=== PATIENT | male | born 1985 | race Caucasian/White ===

== ENCOUNTER 2021-11-27 19:52 | Emergency (ER) | payer OTHER ==
[2021-11-27] MEDS ORDERED: ONDANSETRON 4 MG/2 ML (SDV) Z0FRAN IVP STA (20:22)
[2021-11-27] MEDS ORDERED: KETOROLAC 30 MG/ML VIAL IVP STA (20:22)
[2021-11-27] MEDS ORDERED: PANTOPRAZOLE 40 MG (PROTONIX) VIAL IV STA (20:22)
[2021-11-27] MEDS ORDERED: NS IV 1000 ML 1,000 ML IV STA (20:22)
[2021-11-27 20:30] LABS: BASOPHILS % (AUTO) 1 % (0-10); EOSINOPHILS # (AUTO) 0.1 10^3/uL (0.0-0.3); EOSINOPHILS % (AUTO) 1 % (0-10); HEMATOCRIT 44 % (40-54); HEMOGLOBIN 15.4 g/dL (13.3-17.7); LYMPHOCYTES % (AUTO) 12 % (12-44); MEAN CORPUSCULAR HEMOGLOBIN 30 pg (25-34); MEAN CORPUSCULAR HGB CONC 35 g/dL (32-36); MEAN CORPUSCULAR VOLUME 84 fL (80-99); MEAN PLATELET VOLUME 10.4 fL (9.0-12.2); MONOCYTES # (AUTO) 0.7 10^3/uL (0.0-1.0); MONOCYTES % (AUTO) 9 % (0-12); NEUTROPHILS # (AUTO) 6.4 10^3/uL (1.8-7.8); NEUTROPHILS % (AUTO) 77 % (42-75); PLATELET COUNT 306 10^3/uL (130-400); WHITE BLOOD COUNT 8.4 10^3/uL (4.3-11.0)
[2021-11-27 20:33] LABS: BILIRUBIN,URINE NEGATIVE (NEGATIVE); CLARITY,URINE CLEAR; GLUCOSE, URINE (UA) NEGATIVE (NEGATIVE); KETONES,URINE NEGATIVE (NEGATIVE); NITRITE,URINE NEGATIVE (NEGATIVE); PROTEIN,URINE NEGATIVE (NEGATIVE)
[2021-11-27 20:37] LABS: WBC,URINE 0-2 /HPF
[2021-11-27 20:44] LABS: AMPHETAMINE SCREEN, URINE NEGATIVE (NEGATIVE); BARBITURATE SCREEN URINE NEGATIVE (NEGATIVE); BENZODIAZEPINES SCREEN URINE NEGATIVE (NEGATIVE); CANNABINOID SCREEN, URINE NEGATIVE (NEGATIVE); COCAINE SCREEN URINE NEGATIVE (NEGATIVE); METHADONE STAT NEGATIVE (NEGATIVE); METHAMPHETAMINE SCREEN URINE S NEGATIVE (NEGATIVE); OPIATE SCREEN URINE NEGATIVE (NEGATIVE); OXYCODONE STAT NEGATIVE (NEGATIVE); PROPOXYPHENE STAT NEGATIVE (NEGATIVE); TRICYCLIC ANTIDEPRESSANTS SCRE NEGATIVE (NEGATIVE)
[2021-11-27 20:47] LABS: CARBON DIOXIDE 21 MMOL/L (21-32); CHLORIDE 104 MMOL/L (98-107); POTASSIUM 3.5 MMOL/L (3.6-5.0); SODIUM 136 MMOL/L (135-145)
[2021-11-27 20:48] LABS: ALANINE AMINOTRANSFERASE 49 U/L (0-55); ALBUMIN 4.6 GM/DL (3.2-4.5); ALKALINE PHOSPHATASE 80 U/L (40-136); BILIRUBIN,TOTAL 0.8 MG/DL (0.1-1.0); BUN/CREATININE RATIO 15; CREATININE SERUM 0.97 MG/DL (0.60-1.30); GFR ESTIMATED 104; GLUCOSE 105 MG/DL (70-105); LIPASE 26 U/L (8-78); TOTAL PROTEIN 7.8 GM/DL (6.4-8.2)
--- NOTE | 2021-11-27 21:47 | ED GI ---
General Chief Complaint: Abdominal/GI Problems Stated Complaint: D/N/V Nursing Triage Note: pt reports n/v/d since friday Source of Information: Patient History of Present Illness Date Seen by Provider: Nov 27, 2021 Time Seen by Provider: 20:24 Initial Comments 36-year-old male presenting with complaints of nausea, vomiting, diarrhea since Friday night. He was having trouble concentrating today and even had cut into his finger while at work. He felt like anytime he tried to eat or drink anything it immediately passed through him. He had abdominal cramping especially right before diarrhea. He had noticed some cramping in his legs and muscles. He denied having fever but felt like he has some chills. He denied any pain with urination. He has not seen blood in his vomit or stool. He had no definite ill contacts. He had not eaten anything different to cause his symptoms. He was feeling a little dizzy or lightheaded earlier. Timing/Duration: 2-3 Days Severity/Quality: Moderate, Cramping Location: Generalized Abdomen Radiation: No Radiation Activities at Onset: None Modifying Factors: Worsens With Eating Associated Symptoms: No Back Pain, No Chest Pain, No Diaphoresis, No Fever/Chills; Fatigue; No Headache, No Heartburn; Nausea/Vomiting; No Rash, No Shortness of Air, No Swelling/Mass in Abdomen, No Syncope Allergies and Home Medications Allergies Coded Allergies: No Known Drug Allergies (Unverified , 11/27/21) Patient Home Medication List Home Medication List Reviewed: Yes Ondansetron (Ondansetron Odt) 4 Mg Tab.rapdis, 4 MG PO Q6H PRN for NAUSEA/VOMITING Prescribed by: WALE GLORIA on 11/27/212 Review of Systems Review of Systems Constitutional: chills, dizziness; No fever EENTM: No Symptoms Reported Respiratory: No Symptoms Reported Cardiovascular: No Symptoms Reported Gastrointestinal: See HPI Genitourinary: Denies Burning, Denies Flank Pain Musculoskeletal: muscle pain, muscle cramps Skin: other ( cut to left hand while at work) Psychiatric/Neurological: No Symptoms Reported Past Vvopyew-Bezstg-Xqivas Hx Patient Social History Tobacco Use?: No Substance use?: No Alcohol Use?: Yes Alcohol Frequency: Once in a while Pt feels they are or have been: No Immunizations Up To Date Influenza Vaccine Up-to-Date: Yes; Up-to-Date Physical Exam Vital Signs Vital Signs - First Documented 11/27/21 20:05 Pulse 118 Resp 18 B/P (MAP) 121/68 (85) Pulse Ox 98 O2 Delivery Room Air Capillary Refill : Height/Weight/BMI Height: '" Weight: lbs. oz. kg; BMI Method: General Appearance: WD/WN, no apparent distress HEENT: PERRL/EOMI, other (slightly dry mucous membranes) Neck: non-tender, full range of motion, supple, normal inspection Respiratory: chest non-tender, lungs clear, normal breath sounds, no respiratory distress, no accessory muscle use Cardiovascular: normal peripheral pulses, tachycardia Gastrointestinal: non tender, soft, no pulsatile mass, abnormal bowel sounds (hyperactive); No guarding, No rebound, No tenderness Rectal: deferred Extremities: normal range of motion, non-tender, normal capillary refill Neurologic/Psychiatric: tower erector helper II-XII nml as tested, alert, oriented x 3 Skin: normal color, warm/dry Progress/Results/Core Measures Results/Orders Lab Results Laboratory Tests Test 11/27/21 20:05 11/27/21 21:45 Range/Units White Blood Count 8.4 4.3-11.0 10^3/uL Red Blood Count 5.21 4.30-5.52 10^6/uL Hemoglobin 15.4 13.3-17.7 g/dL Hematocrit 44 40-54 % Mean Corpuscular Volume 84 80-99 fL Mean Corpuscular Hemoglobin 30 25-34 pg Mean Corpuscular Hemoglobin Concent 35 32-36 g/dL Red Cell Distribution Width 13.0 10.0-14.5 % Platelet Count 306 130-400 10^3/uL Mean Platelet Volume 10.4 9.0-12.2 fL Immature Granulocyte % (Auto) 0 % Neutrophils (%) (Auto) 77 H 42-75 % Lymphocytes (%) (Auto) 12 12-44 % Monocytes (%) (Auto) 9 0-12 % Eosinophils (%) (Auto) 1 0-10 % Basophils (%) (Auto) 1 0-10 % Neutrophils # (Auto) 6.4 1.8-7.8 10^3/uL Lymphocytes # (Auto) 1.0 1.0-4.0 10^3/uL Monocytes # (Auto) 0.7 0.0-1.0 10^3/uL Eosinophils # (Auto) 0.1 0.0-0.3 10^3/uL Basophils # (Auto) 0.0 0.0-0.1 10^3/uL Immature Granulocyte # (Auto) 0.0 0.0-0.1 10^3/uL Sodium Level 136 135-145 MMOL/L Potassium Level 3.5 L 3.6-5.0 MMOL/L Chloride Level 104 98-107 MMOL/L Carbon Dioxide Level 21 21-32 MMOL/L Anion Gap 11 5-14 MMOL/L Blood Urea Nitrogen 15 7-18 MG/DL Creatinine 0.97 0.60-1.30 MG/DL Estimat Glomerular Filtration Rate 104 BUN/Creatinine Ratio 15 Glucose Level 105 70-105 MG/DL Calcium Level 9.0 8.5-10.1 MG/DL Corrected Calcium 8.5-10.1 MG/DL Total Bilirubin 0.8 0.1-1.0 MG/DL Aspartate Amino Transf (AST/SGOT) 26 5-34 U/L Alanine Aminotransferase (ALT/SGPT) 49 0-55 U/L Alkaline Phosphatase 80 40-136 U/L Total Protein 7.8 6.4-8.2 GM/DL Albumin 4.6 H 3.2-4.5 GM/DL Lipase 26 8-78 U/L Urine Color YELLOW Urine Clarity CLEAR Urine pH 5.5 5-9 Urine Specific Aguilar >=1.030 1.016-1.022 Urine Protein NEGATIVE NEGATIVE Urine Glucose (UA) NEGATIVE NEGATIVE Urine Ketones NEGATIVE NEGATIVE Urine Nitrite NEGATIVE NEGATIVE Urine Bilirubin NEGATIVE NEGATIVE Urine Urobilinogen 0.2 < = 1.0 MG/DL Urine Leukocyte Esterase NEGATIVE NEGATIVE Urine RBC (Auto) NEGATIVE NEGATIVE Urine RBC NONE /HPF Urine WBC 0-2 /HPF Urine Squamous Epithelial Cells RARE /HPF Urine Crystals PRESENT H /LPF Urine Amorphous Sediment RARE DAR URATES H /LPF Urine Bacteria TRACE /HPF Urine Casts NONE /LPF Urine Mucus SMALL H /LPF Urine Culture Indicated NO Urine Opiates Screen NEGATIVE NEGATIVE Urine Oxycodone Screen NEGATIVE NEGATIVE Urine Methadone Screen NEGATIVE NEGATIVE Urine Propoxyphene Screen NEGATIVE NEGATIVE Urine Barbiturates Screen NEGATIVE NEGATIVE Ur Tricyclic Antidepressants Screen NEGATIVE NEGATIVE Urine Phencyclidine Screen NEGATIVE NEGATIVE Urine Amphetamines Screen NEGATIVE NEGATIVE Urine Methamphetamines Screen NEGATIVE NEGATIVE Urine Benzodiazepines Screen NEGATIVE NEGATIVE Urine Cocaine Screen NEGATIVE NEGATIVE Urine Cannabinoids Screen NEGATIVE NEGATIVE My Orders Orders - WALE GLORIA MD Comprehensive Metabolic Panel (11/27/21 20:22) Lipase (11/27/21 20:22) Ua Culture If Indicated (11/27/21 20:22) Ed Iv/Invasive Line Start (11/27/21 20:22) Cbc With Automated Diff (11/27/21 20:22) Ct Abdomen/Pelvis Wo (11/27/21 20:22) Ns Iv 1000 Ml (Sodium Chloride 0.9%) (11/27/21 20:22) Ondansetron Injection (Zofran Injectio (11/27/21 20:22) Pantoprazole Injection (Protonix Injecti (11/27/21 20:22) Ketorolac Injection (Toradol Injection) (11/27/21 20:22) Drug Screen Stat (Urine) (11/27/21 20:24) Rx-Ondansetron Po (Rx-Zofran Po) (11/27/21 22:30) Vital Signs/I&O 11/27/21 11/27/21 11/27/21 20:05 20:35 21:31 Pulse 118 104 100 Resp 18 18 18 B/P (MAP) 121/68 (85) 102/53 103/52 Pulse Ox 98 98 97 O2 Delivery Room Air Room Air Room Air Blood Pressure Mean: 69 Progress Progress Note #1: Progress Note Obtain labs as well as urine and CT scan of his abdomen and pelvis. Give IVF 1 L NS for hydration, Zofran 4 mg IV for nausea/vomiting, Pantoprazole 40 mg IV for gastritis, Toradol 30 mg IV for abdominal pain/cramping. In case he needs a narcotic for pain control will obtain UDS and if needed refer to [facility] to look for any opiates or controlled substances in his system. Differential diagnosis includes Covid, gastroenteritis, food poisoning, colitis, diverticulitis, pyelonephritis, renal colic, inflammatory bowel disease, partial small bowel obstruction Progress Note #2: Progress Note CBC and chemistry are stable without acute significant abnormality. His potassium is at the lower limit of normal at 3.5. He was able to provide a urine specimen after given a liter of normal saline IV. Awaiting CT scan but refugio lopez reports that his nausea and abdominal cramping as well as muscle cramping in his legs is all improved as he was treated here in the ED Progress Note #3: Progress Note Urinalysis does not show signs of infection. His urine drug screen was negative. Awaiting CT scan report. Patient tolerating p.o. intake here in the ED Progress Note #4: Progress Note CT shows fluid filled loops of bowel consistent with enteritis/diarrhea. There is a septated fatty structure in the perirectal area that is putting pressure on rectum and prostate. Will have pt follow up with clinic about this as he may need biopsy or surgery to evaluate it. Treat symptoms with zofran and push fluids and rest. Counseled on follow up and return precautions. Diagnostic Imaging Diagonstic Imaging: CT Plain Films/CT/US/NM/MRI: abdomen, pelvis Comments [facility]. [place], [place] NAME: MAYTE MADISON SAVANNAH MED REC#: [id number] PT STATUS: REG ER : 1985 PHYSICIAN: WALE GLORIA MD ADMIT DATE: 11/27/21/ER FS Draft Date of Exam:11/27/21 CT ABDOMEN/PELVIS WO PROCEDURE: CT abdomen and pelvis without contrast. TECHNIQUE: Multiple contiguous axial images were obtained through the abdomen and pelvis without the use of intravenous contrast. Auto Exposure Controls were utilized during the CT exam to meet ALARA standards for radiation dose reduction. INDICATION: Nausea, emesis and diarrhea. There is a subcentimeter circumscribed nodule in the posterolateral left lower lobe. This could be related to granulomatous residual. Below the diaphragm, unenhanced images of the liver, gallbladder, pancreas, adrenal glands and spleen are unremarkable. There is a small hiatal hernia. There is no evidence of renal mass or hydronephrosis. The ureters are not dilated and unenhanced urinary bladder is unremarkable in appearance. There is fluid distention of small bowel without significant transition to indicate site of obstruction. No localized inflammation is identified. The rectum is displaced toward the right secondary to what appears to be septated fat-containing mass in the lower left pelvis extending into the left ischiorectal fossa. Fatty mass measures approximately 5.9 x 7.8 x 9 cm. There is localized L4-L5 and L5-S1 degenerative disc disease with endplate spurring. IMPRESSION: No definite acute abnormality is seen within the abdomen or pelvis although there is fluid distention of bowel which could reflect ileus or enteritis. No focal inflammation is identified although septated fatty structure in the left perirectal region extends caudal to the ischiorectal fossa and results in significant mass effect upon the rectum and prostate gland. Clinical correlation would be of use. Dictated on workstation # [id number] Dict: 11/27/217 Trans: 11/27/212213 [facility] [id number] Interpreted by: GISELE GONSALEZ MD Electronically signed by: Reviewed: Reviewed by Me Departure Impression Primary Impression: Nausea vomiting and diarrhea Additional Impressions: Dehydration Abdominal cramping Muscle cramps Mass of perirectal soft tissue Disposition: HOME, SELF-CARE Condition: Stable Departure-Patient Inst. Decision time for Depature: 22:23 Referrals: DARRYN BRODERICK DO [facility] [phone] for making an appointment for follow up Patient Instructions: Nausea and Vomiting, Adult ED, Muscle Spasm ED, Dehydration, Adult ED, Diarrhea, Adult ED, Abdominal Pain, Adult ED Add. Discharge Instructions: Stay well hydrated and drink more fluids and electrolyte drinks. Use the dissolving nausea tabs to help keep your stomach settled Follow up with clinic if not improving or having continued concerns. All discharge instructions reviewed with patient and/or family. Voiced understanding. Scripts Ondansetron (Ondansetron Odt) 4 Mg Tab.rapdis 4 MG PO Q6H PRN for NAUSEA/VOMITING for 3 Days, #12 TAB 0 Refills Prov: WALE GLORIA MD 11/27/21 Work/School Note: Work Release Form Date Seen in the Emergency Department: Nov 27, 2021 Return to Work: Nov 29, 2021 Restrictions: Return-No Vomiting(24hrs) WALE GLORIA MD Nov 27, 2021 21:47
[2021-11-27 22:02] LABS: AMORPHOUS SEDIMENT,UR RARE AMOR URATES /LPF
[2021-11-27 22:06] LABS: COLOR,URINE YELLOW; PH,URINE 5.5 (5-9)
[2021-11-27 22:07] LABS: BACTERIA,URINE TRACE /HPF; LEUKOCYTE ESTERASE ,URINE NEGATIVE (NEGATIVE)
[2021-11-27 22:08] LABS: SQUAMOUS EPITHELIAL CELL,UR RARE /HPF
[2021-11-27] MEDS ORDERED: ONDA4TAB11 PO (22:09)
--- NOTE | 2021-11-27 22:15 | Diagnostic Imaging Report ---
PROCEDURE: CT abdomen and pelvis without contrast. TECHNIQUE: Multiple contiguous axial images were obtained through the abdomen and pelvis without the use of intravenous contrast. Auto Exposure Controls were utilized during the CT exam to meet ALARA standards for radiation dose reduction. INDICATION: Nausea, emesis and diarrhea. There is a subcentimeter circumscribed nodule in the posterolateral left lower lobe. This could be related to granulomatous residual. Below the diaphragm, unenhanced images of the liver, gallbladder, pancreas, adrenal glands and spleen are unremarkable. There is a small hiatal hernia. There is no evidence of renal mass or hydronephrosis. The ureters are not dilated and unenhanced urinary bladder is unremarkable in appearance. There is fluid distention of small bowel without significant transition to indicate site of obstruction. No localized inflammation is identified. The rectum is displaced toward the right secondary to what appears to be septated fat-containing mass in the lower left pelvis extending into the left ischiorectal fossa. Fatty mass measures approximately 5.9 x 7.8 x 9 cm. There is localized L4-L5 and L5-S1 degenerative disc disease with endplate spurring. IMPRESSION: No definite acute abnormality is seen within the abdomen or pelvis although there is fluid distention of bowel which could reflect ileus or enteritis. No focal inflammation is identified although septated fatty structure in the left perirectal region extends caudal to the ischiorectal fossa and results in significant mass effect upon the rectum and prostate gland. Clinical correlation would be of use. Dictated by: Dictated on workstation # [id number]
[2021-11-27] MEDS ORDERED: RX-ONDANSETRON 4 MG ODT (ZOFRAN) PPK #4 PO PRN (22:30)
[2021-11-27 22:39] VITALS: BP 103/52
== END 2021-11-27 22:38 | disposition home or self-care (01) ==
LOC: ER FS 19:55
DX: R11.2 Nausea with vomiting, unspecified (principal); R19.7 Diarrhea, unspecified; E86.0 Dehydration; R10.9 Unspecified abdominal pain; R25.2 Cramp and spasm; K62.89 Other specified diseases of anus and rectum
CPT/HCPCS: 36415; 74176; 80053; 80306; 81000; 83690; 85025

== ENCOUNTER 2021-12-10 05:55 | Outpatient (CLI) | payer OTHER ==
[~2021-12-10] VITALS: Ht 177.8 cm; Wt 121.7 kg
[~2021-12-10 05:55] MED LIST: ONDA4TAB11 PO
[2021-12-10] MEDS ORDERED: TOPI50TA13 PO (10:58)
== END 2021-12-10 11:11 | disposition home or self-care (01) ==
LOC: PREOP 05:55
PROVIDERS: ATTEND Surgery
DX: Z01.818 Encounter for other preprocedural examination (principal)

== ENCOUNTER 2021-12-17 12:49 | Day surgery (SDC) | payer OTHER ==
[~2021-12-17] VITALS: Ht 178 cm; Wt 121.7 kg
[2021-12-17] VITALS (8 sets, daily range): BP systolic 101–130; BP diastolic 57–82
[~2021-12-17 12:49] MED LIST changes: +TOPI50TA13 PO
[2021-12-17] MEDS ORDERED: LACTATED RINGERS 1,000 ML IV STA (12:54)
--- NOTE | 2021-12-17 13:24 | Progress Note-Pre Operative ---
Pre-Operative Progress Note H&P Reviewed The H&P was reviewed, patient examined and no changes noted. Time Seen by Provider: 13:21 Date H&P Reviewed: Dec 17, 2021 Time H&P Reviewed: 13:21 Pre-Operative Diagnosis: Rectal bleed, ??rectal mass DARRYN BRODERICK DO Dec 17, 2021 13:24
--- NOTE | 2021-12-17 14:02 | Anesthesia-General Post-Op ---
MAC Patient Condition Mental Status/LOC: Same as Preop Cardiovascular: Satisfactory Nausea/Vomiting: Absent Respiratory: Satisfactory Pain: Controlled Complications: Absent Post Op Complications Complications None Follow Up Care/Instructions Patient Instructions None needed. Anesthesiology Discharge Order Discharge Order Patient is doing well, no complaints, stable vital signs, no apparent adverse anesthesia problems. No complications reported per nursing. VIV SEGURA CRNA Dec 17, 2021 14:02
[2021-12-17] MEDS ORDERED: MIDAZOLAM 2 MG/2 ML (VERSED) VIAL ONE (14:03)
[2021-12-17] MEDS ORDERED: PROPOFOL INJECTION 50 ML IV ONE (14:04)
[2021-12-17] MEDS ORDERED: proPOfol 200 MG/20 ML (DIPRIVAN) VIAL IV ONE (14:15)
--- NOTE | 2021-12-17 14:26 | Progress Note-Post Operative ---
Post-Operative Progess Note Surgeon (s)/Project Manager Retail (s) Surgeon DARRYN BRODERICK DO Project Manager Retail: RAHEEM RiosII Pre-Operative Diagnosis Rectal bleed, ??rectal mass Post-Operative Diagnosis polyp internal hemorrhoids rectal mass ext skin tag Procedure & Operative Findings Date of Procedure 12/17/21 Procedure Performed/Findings Colonoscopy with snare polypectomy PROCEDURE NOTE: After informed consent was obtained, the patient was brought to the endoscopy suite, placed in bed in left lateral decubitus position. He was administered IV sedation by the GEOLOGICAL SPECIALIST who then monitored his vitals the entire time, heart rate, blood pressure and pulse ox and the scope was inserted, pushed all the way to about 150 cm to get to the cecum. On the way in, found a polyp in the ascending colon and removed it with snare polypectomy. Once in the cecum took a picture of the appendiceal orifice and then slowly withdrew the scope insufflating to look circumferentially at the pal starting in the cecum, up the ascending colon to the hepatic flexure, then down the transverse colon, splenic flexure, into the descending colon down in the sigmoid and then into the rectal vault and retroflexed the scope. Took a picture of the internal hemorrhoids and of the external skin tag. I performed a MERARI and could feel the fullness just outside the rectum, nothing visualized with scope. It felt soft. The patient tolerated the procedure. He was recovered in endoscopy suite. Anesthesia Type IV sedation by GEOLOGICAL SPECIALIST Estimated Blood Loss Estimated blood loss (mL): scant Specimens/Packing Specimens Removed asc colon polyp DARRYN BRODERICK DO Dec 17, 2021 14:26
--- NOTE | 2021-12-17 14:27 | Endoscopy Discharge Instruct ---
Endo Procedure/Findings Findings 1.: Polyp 2.: Internal Hemorrhoids 3.: Other Findings (external skin tag) Discharge Instructions - Activity: You might feel a little sleepy until tomorrow. This is due to the medicine you received to relax you. Until tomorrow, you should: NOT drive a car, operate machinery or power tools. NOT drink any alcoholic beverages. NOT make any important decisions or sign importortant papers. Do not return to work until tomorrow, unless otherwise instructed. Resume previous activities tomorrow. Diet: Start by taking liquids. If you tolerate liquids, advance to solid food. 1.: Colonscopy in 5 years Notify Physician - If you experience excessive bleeding, unusual abdominal pain, fever, or chest pain, contact your doctor immediately. DARRYN BRODERICK DO Dec 17, 2021 14:27
== END 2021-12-17 15:30 | disposition home or self-care (01) ==
LOC: ENDO 12:49
PROVIDERS: ATTEND Surgery
DX: D12.2 Benign neoplasm of ascending colon (principal); K64.8 Other hemorrhoids; K64.4 Residual hemorrhoidal skin tags; K62.89 Other specified diseases of anus and rectum; Z87.891 Personal history of nicotine dependence
CPT/HCPCS: 88305

== ENCOUNTER 2022-03-27 20:27 | Outpatient (CLI) | payer OTHER | END 2022-03-28 06:20 | disposition home or self-care (01) | LOC: SLEEP 20:27 | PROVIDERS: ATTEND Psychiatry & Neurology Neurology | DX: G47.33 Obstructive sleep apnea (adult) (pediatric) (principal) | CPT/HCPCS: 95810 ==

== ENCOUNTER → 2023-02-26 | Outpatient (CLI) | payer OTHER ==
[~2023-02-26] MED LIST changes: +HOLD METFORMIN - RECEIVED CONTRAST 20 ML VIAL IV SCH; +IOHEXOL 350 MG/ML 100 ML (OMNIPAQUE 350) VIAL IV ONE; +NS 100 ML (IVPB) BAG IV ONE; +TOPI-241 PO; -TOPI50TA13 PO
--- NOTE | 2023-02-26 09:14 | Diagnostic Imaging Report ---
EXAMINATION: CT abdomen and pelvis with intravenous contrast. TECHNIQUE: Multiple contiguous axial images were obtained through the abdomen and pelvis after the uneventful administration of intravenous contrast. All CT scans use one or more of the following dose optimizing techniques: automated exposure control, MA and/or KvP adjustment based on patient size and exam type or iterative reconstruction. HISTORY: Left lower quadrant palpable abnormality COMPARISON: 11/27/2021 FINDINGS: Lung bases: There is a calcified granuloma in the left lower lobe. Lung bases are otherwise clear. Solid organs: The liver is normal without focal lesion. The gallbladder is normal. There is no biliary ductal dilation. Pancreas is normal. Spleen is normal. Adrenal glands are normal. The kidneys are normal without hydronephrosis. Bowel: The stomach and small bowel are normal without obstruction. The colon is normal. The appendix is normal. Peritoneum: There is no intraperitoneal free fluid or free air. No suspicious lymphadenopathy. Vasculature: Normal without aneurysm. Musculoskeletal: Degenerative changes of the spine without suspicious osseous lesion or compression fracture. There is a small fat-containing periumbilical hernia. There is a stable fat attenuation lesion within the left perirectal space measuring 7.0 x 4.1 cm. This does cause mass effect on the rectum. Pelvis: The prostate gland is normal. The urinary bladder is normal. IMPRESSION: 1. Stable fat attenuation mass within the left perirectal space resulting in mild mass effect. This may represent a simple lipoma although liposarcoma is not entirely excluded. Recommend continued CT surveillance. 2. No other acute abnormality in the abdomen or pelvis. Dictated by: Dictated on workstation # [id number]
== END ==
LOC: RAD 07:58
PROVIDERS: ATTEND Surgery
DX: R19.00 Intra-abdominal and pelvic swelling, mass and lump, unspecified site (principal)
CPT/HCPCS: 74177